=== PATIENT | male | born 1960 | race Caucasian/White ===

== ENCOUNTER 2018-11-06 05:02 | Emergency (ER) | payer SELFPAY ==
[~2018-11-06] VITALS: Ht 182.9 cm; Wt 78.0 kg
[~2018-11-06 05:02] MED LIST: METF500T17 PO
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
[2018-11-06 05:26] VITALS: BP 135/80
[2018-11-06] MEDS ORDERED: IBUP100T PO (05:28)
--- NOTE | 2018-11-06 05:38 | NUR ---
PT UP TO RR WITH STEADY GAIT, DENIES NEEDS, PAIN OR SOB AT THIS TIME Addendum: 11/06/18 at 0540 by MATTHEW PT STATES " I FEEL BETTER, I GET TO GO HOME".
== END 2018-11-06 05:55 | disposition home or self-care (01) ==
LOC: ED 05:54
DX: R00.0 Tachycardia, unspecified (principal); E11.9 Type 2 diabetes mellitus without complications; Z87.891 Personal history of nicotine dependence
CPT/HCPCS: 99283

== ENCOUNTER 2018-11-09 19:21 | Emergency (ER) | payer OTHER ==
[~2018-11-09] VITALS: Ht 175.3 cm; Wt 475.0 kg
[~2018-11-09 19:21] MED LIST changes: +IBUP100T PO
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
[2018-11-09 20:09] LABS: BASOPHILS # (AUTO) 0.01 x10^3/uL (0-0.1); BASOPHILS % (AUTO) 0 % (0-1); EOSINOPHILS # (AUTO) 0.07 x10^3/uL (0-0.4); EOSINOPHILS % (AUTO) 1 % (1-7); LYMPHOCYTES % (AUTO) 32 % (22-44); MD NO; MEAN CORPUSCULAR HEMOGLOBIN 32.1 pg (27.5-34.5); MEAN CORPUSCULAR HGB CONC 33.4 g/dL (33.2-36.2); MEAN CORPUSCULAR VOLUME 95.9 fL (81-97); MEAN PLATELET VOLUME 8.4 fL (7.4-10.4); MONOCYTES # (AUTO) 0.35 x10^3/uL (0.2-0.8); MONOCYTES % (AUTO) 6 % (2-9); NEUTROPHILS # (AUTO) 3.44 x10^3/uL (1.8-6.8); NEUTROPHILS % (AUTO) 61 % (42-75); PLATELET COUNT 299 x10^3/uL (130-400); RED BLOOD COUNT 5.34 x10^6/uL (4.38-5.82); RED CELL DISTRIBUTION WIDTH 12.5 % (9.4-14.8)
[2018-11-09 20:20] LABS: ANION GAP 10 mmol/L (5-15); CALCIUM 8.1 mg/dL (8.5-10.1); CHLORIDE 113 mmol/L (98-107); CREATININE 0.86 mg/dL (0.7-1.3)
[2018-11-09 20:25] LABS: TROPONIN I < 0.015 ng/mL (0.000-0.045)
--- NOTE | 2018-11-09 20:47 | NUR ---
PT TO CT WITH TECH TRANSPORT
--- NOTE | 2018-11-09 21:06 | NUR ---
[facility] ST[facility] HOME MEDS UPDATED PT IS RESTING IN THE [place] NO OTHER DISTRESS
[2018-11-09 21:57] VITALS: BP 140/82
--- NOTE | 2018-11-09 21:58 | NUR ---
Patient/Caregiver given discharge instructions and they have confirmed that they understand the instructions. Patient ambulatory with steady gait. CLEAN SET OF CLOTHES PROVIDED
== END 2018-11-09 22:33 | disposition home or self-care (01) ==
LOC: ED 21:57
DX: S80.211A Abrasion, right knee, initial encounter (principal); F10.220 Alcohol dependence with intoxication, uncomplicated; R51 Headache; E11.9 Type 2 diabetes mellitus without complications; W16.112A Fall into natural body of water striking water surface causing other injury, initial encounter; Y93.89 Activity, other specified; Y92.89 Other specified places as the place of occurrence of the external cause; Y99.8 Other external cause status
CPT/HCPCS: 36415; 70450; 72125; 80048; 80307; 82040; 84484; 85025; 93005; 99284

== ENCOUNTER 2020-03-01 02:23 | Emergency (ER) | payer SELFPAY ==
[~2020-03-01] VITALS: Ht 180.3 cm; Wt 77.6 kg
[2020-03-01 02:57] LABS: BASOPHILS % (AUTO) 1 % (0-1); EOSINOPHILS % (AUTO) 1 % (1-7); LYMPHOCYTES % (AUTO) 27 % (22-44); MEAN CORPUSCULAR HEMOGLOBIN 31.2 pg (27.5-34.5); MEAN PLATELET VOLUME 8.7 fL (7.4-10.4); MONOCYTES % (AUTO) 5 % (2-9); NEUTROPHILS % (AUTO) 66 % (42-75); PLATELET COUNT 320 x10^3/uL (130-400); RED CELL DISTRIBUTION WIDTH 12.9 % (9.4-14.8)
[2020-03-01 02:58] LABS: MD NO
[2020-03-01 03:03] LABS: ALANINE AMINOTRANSFERASE 35 U/L (12-78); ANION GAP 5 mmol/L (5-15); CALCIUM 8.1 mg/dL (8.5-10.1); CHLORIDE 112 mmol/L (98-107); CREATININE 0.81 mg/dL (0.7-1.3)
[2020-03-01 03:13] LABS: ALKALINE PHOSPHATASE 102 U/L (45-117); BILIRUBIN,TOTAL 0.2 mg/dL (0.2-1.0); TOTAL PROTEIN 7.6 g/dL (6.4-8.2)
[2020-03-01 04:52] VITALS: BP 126/64
== END 2020-03-01 04:55 | disposition home or self-care (01) ==
LOC: ED 04:22
DX: F10.10 Alcohol abuse, uncomplicated (principal); R10.12 Left upper quadrant pain; R10.11 Right upper quadrant pain; R94.31 Abnormal electrocardiogram [ECG] [EKG]; F17.210 Nicotine dependence, cigarettes, uncomplicated; E11.9 Type 2 diabetes mellitus without complications; Z72.9 Problem related to lifestyle, unspecified; Y90.0 Blood alcohol level of less than 20 mg/100 ml
CPT/HCPCS: 36415; 80053; 80307; 83690; 85025; 93005; 99284; 99406